=== PATIENT | male | born 1975 | race Caucasian/White ===

== ENCOUNTER 2020-08-03 08:00 | Outpatient (CLI) | payer OTHER ==
[2020-08-03 12:26] LABS: BASOPHILS # (AUTO) 0.1 10^3/uL (0.0-0.1); BASOPHILS % (AUTO) 1.2 %; EOSINOPHILS # (AUTO) 0.1 10^3/uL (0.0-0.7); EOSINOPHILS % (AUTO) 1.5 %; HCT - HEMATOCRIT 43.5 % (42.0-52.0); HGB - HEMOGLOBIN 14.3 g/dL (14.0-18.0); LYMPHOCYTES # (AUTO) 1.9 10^3/uL (1.5-3.5); LYMPHOCYTES % (AUTO) 37.3 %; MEAN CORPUSCULAR HEMOGLOBIN 32.1 pg (27.0-31.0); MEAN CORPUSCULAR HGB CONC 32.9 g/dL (32.0-36.0); MEAN CORPUSCULAR VOLUME 97.5 fL (80.0-94.0); MONOCYTES # (AUTO) 0.5 10^3/uL (0.0-1.0); MONOCYTES % (AUTO) 8.8 %; NEUTROPHILS # (AUTO) 2.7 10^3/uL (1.5-6.6); NEUTROPHILS % (AUTO) 51.2 %; PLT - PLATELET COUNT 356 10^3/uL (130-450); RED BLOOD COUNT 4.46 10^6/uL (4.70-6.10); RED CELL DISTRIBUTION WIDTH 12.1 % (12.0-15.0); WHITE BLOOD COUNT 5.2 x10^3/uL (4.8-10.8)
[2020-08-03 13:04] LABS: ALBUMIN 4.6 g/dL (3.2-5.5); ALBUMIN/GLOBULIN RATIO 1.4 (1.0-2.2); ALKALINE PHOSPHATASE 44 IU/L (42-121); ALT ALANINE AMINOTRANSFERASE 22 IU/L (10-60); AST ASPARTATE AMINOTRANSFERASE 29 IU/L (10-42); BILIRUBIN,TOTAL 1.1 mg/dL (0.2-1.0); BUN - BLOOD UREA NITROGEN 13 mg/dL (6-20); CALCIUM 9.5 mg/dL (8.5-10.3); CARBON DIOXIDE - CO2 29 mmol/L (21-32); CHLORIDE 100 mmol/L (101-111); CHOL/HDL RATIO 3.1 (<5.0); CHOLESTEROL 235 mg/dL; CREATININE 1.1 mg/dL (0.6-1.2); GFR - MDRD 72 (>89); GLUCOSE 116 mg/dL (70-100); HDL CHOLESTEROL 75 mg/dL; LDL CHOLESTEROL,CALCULATED 149 mg/dL; POTASSIUM 4.6 mmol/L (3.5-5.0); SODIUM 139 mmol/L (135-145); TOTAL PROTEIN 7.9 g/dL (6.7-8.2); TRIGLYCERIDES 56 mg/dL; VLDL CHOLESTEROL 11 mg/dL
[2020-08-03 13:25] LABS: THYROID STIMULATING HORMONE 0.81 uIU/mL (0.34-5.60)
== END 2020-08-03 23:59 | disposition home or self-care (01) ==
LOC: LAB.WCP 08:00
PROVIDERS: ATTEND Family Medicine
DX: Z00.00 Encounter for general adult medical examination without abnormal findings (principal); R03.0 Elevated blood-pressure reading, without diagnosis of hypertension; R36.1 Hematospermia; Z12.5 Encounter for screening for malignant neoplasm of prostate
CPT/HCPCS: 36415; 80053; 80061; 83721; 84153; 84443; 85025

== ENCOUNTER 2021-04-30 12:26 | Emergency (ER) | payer OTHER ==
[2021-04-30 12:36] VITALS: BP 170/89
--- NOTE | 2021-04-30 12:55 | ED Physician Documentation ---
History of Present Illness - Stated complaint Stated Complaint: R ARM PX - Chief complaint Chief Complaint: Ext Problem - History obtained from History obtained from: Patient - Additonal information Additional information: Without specific trauma he awoke with severe neck and shoulder pain last Monday morning, week ago. Since then the pain has been constant, but somewhat waxing and waning. Only a 6 right now but at times much more severe. He describes pain radiating from the shoulder and down the arm towards the ulnar side of the hand associated with numbness in that distribution as well. It is worse with movement of the shoulder, but he has some pre-existing shoulder issues and movement of the shoulder does not seem much worse than it did previously. He seen a chiropractor and a massage therapist twice with only transient relief, and went to the walk-in clinic and got a muscle relaxer which has not been helpful. Denies fevers or chills. Review of Systems Constitutional: reports: Reviewed and negative Eyes: reports: Reviewed and negative Ears: reports: Reviewed and negative Nose: reports: Reviewed and negative Throat: reports: Reviewed and negative PD PAST MEDICAL HISTORY - Present Medications Home Medications: Ambulatory Orders Medication Instructions Recorded Confirmed Gabapentin [Neurontin] 300 mg PO TID #60 cap 04/30/21 Oxycodone HCl/Acetaminophen 1 - 2 each PO Q6H PRN #25 tablet 04/30/21 [Percocet 5-325 mg Tablet] methocarbamoL [Methocarbamol] 500 mg PO BID PRN 04/30/21 04/30/21 predniSONE [Deltasone] 20 mg PO [id number] #21 tab 04/30/21 - Allergies Allergies/Adverse Reactions: Allergies Allergy/AdvReac Type Severity Reaction Status Date / Time No Known Drug Allergies Allergy Verified 04/30/21 12:36 PD ED PE NORMAL - Vitals Vital signs reviewed: Yes - General General: Alert and oriented X 3, No acute distress - Neck Neck: Supple, no meningeal sign, No bony TTP - Extremities Extremities: Other (No specific tenderness of the shoulder on the right nor the neck. He is only able to abduct to about 90 degrees but says this is pretty typical. 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 MRI is not available today but that is not an emergent issue and his pain is treated pending follow-up. Departure - Departure Disposition: Home, Self Care Clinical Impression: Cervical radiculopathy Condition: Good Record reviewed to determine appropriate education?: Yes Instructions: ED Cervical Radiculopathy Prescriptions: predniSONE [Deltasone] 20 mg PO [id number] #21 tab Gabapentin [Neurontin] 300 mg PO TID #60 cap Oxycodone HCl/Acetaminophen [Percocet 5-325 mg Tablet] 1 - 2 each PO Q6H PRN #25 tablet PRN Reason: pain Comments: As discussed, I believe that you probably have a cervical radiculopathy, also known as a pinched nerve in your neck. At some point you will probably need an MRI if this continues, but right now we are going to treat with medications especially since you are traveling in the next few days and MRI is not available today. I sent the prescriptions electronically to [facility] in [place]. Do not drink or drive while taking gabapentin or Percocet/oxycodone. Return for new or worsening symptoms. This record should go to Dr. Felix's office which may help arrange follow-up, currently the MRI runs Monday through "bankers hours" I am prescribing a short course of narcotic pain medication for you. These are potentially dangerous and addictive medications that should be used carefully. These medications may constipate you. Take an [id number] stool softener (docusate) twice daily with plenty of water while taking these medications. If you go 24 hours without a bowel movement, take [id number] miralax, per package instructions. Do not drink or drive while taking these medications. If you received narcotic or sedating medications while in the emergency department, do not drive for 24 hours. Store this medication in a safe, secure place and out of reach of children. It is a violation of federal law to give or sell this medication to another person or to use in a manner other than prescribed. The ED will not refill narcotic prescriptions, including prescriptions lost or stolen. To dispose of unwanted medications: 1. [facility] at [address] in [place] has a medication drop box. They accept prescription medications (in pill form) Monday through Monday 9:00 a.m. to 5:00 p.m. 2. The [facility] accepts prescription medications (in pill form only) for disposal year round. Call for more information. 3. Contact the [facility] for the next [facility] sponsored prescription drug collection event. , [phone], or [phone]; Note that many narcotic pain relievers also contain Tylenol/acetaminophen. Please ensure that your total dose of acetaminophen from all sources does not exceed 3 g (3000 mg) per day. Discharge Date/Time: 04/30/21 13:08
== END 2021-04-30 13:08 | disposition home or self-care (01) ==
LOC: ED 12:26
DX: M54.12 Radiculopathy, cervical region (principal)
CPT/HCPCS: 99283

== ENCOUNTER 2021-05-13 11:23 | Outpatient (CLI) | payer OTHER ==
[2021-05-13 18:23] LABS: BASOPHILS # (AUTO) 0.1 10^3/uL (0.0-0.1); BASOPHILS % (AUTO) 0.7 %; EOSINOPHILS % (AUTO) 0.5 %; HCT - HEMATOCRIT 45.7 % (42.0-52.0); HGB - HEMOGLOBIN 14.9 g/dL (14.0-18.0); LYMPHOCYTES # (AUTO) 1.9 10^3/uL (1.5-3.5); LYMPHOCYTES % (AUTO) 23.5 %; MEAN CORPUSCULAR HEMOGLOBIN 31.4 pg (27.0-31.0); MEAN CORPUSCULAR HGB CONC 32.6 g/dL (32.0-36.0); MEAN CORPUSCULAR VOLUME 96.2 fL (80.0-94.0); MEAN PLATELET VOLUME 10.4 fL (7.4-11.4); MONOCYTES # (AUTO) 0.6 10^3/uL (0.0-1.0); MONOCYTES % (AUTO) 6.8 %; NEUTROPHILS # (AUTO) 5.6 10^3/uL (1.5-6.6); NEUTROPHILS % (AUTO) 68.4 %; PLT - PLATELET COUNT 346 10^3/uL (130-450); RED BLOOD COUNT 4.75 10^6/uL (4.70-6.10); RED CELL DISTRIBUTION WIDTH 12.2 % (12.0-15.0); WHITE BLOOD COUNT 8.2 x10^3/uL (4.8-10.8)
[2021-05-13 18:52] LABS: ALBUMIN 4.6 g/dL (3.2-5.5); ALBUMIN/GLOBULIN RATIO 1.4 (1.0-2.2); ALKALINE PHOSPHATASE 47 IU/L (42-121); ALT ALANINE AMINOTRANSFERASE 30 IU/L (10-60); AST ASPARTATE AMINOTRANSFERASE 37 IU/L (10-42); BILIRUBIN,TOTAL 0.8 mg/dL (0.2-1.0); BUN - BLOOD UREA NITROGEN 14 mg/dL (6-20); CALCIUM 9.5 mg/dL (8.5-10.3); CARBON DIOXIDE - CO2 28 mmol/L (21-32); CHLORIDE 98 mmol/L (101-111); CHOL/HDL RATIO 3.5 (<5.0); CHOLESTEROL 269 mg/dL; CREATININE 1.1 mg/dL (0.6-1.2); GFR - MDRD 72 (>89); GLUCOSE 100 mg/dL (70-100); HDL CHOLESTEROL 77 mg/dL; LDL CHOLESTEROL,CALCULATED 179 mg/dL; LDL/HDL RATIO 2.3 (<3.6); POTASSIUM 4.7 mmol/L (3.5-5.0); SODIUM 137 mmol/L (135-145); TOTAL PROTEIN 7.8 g/dL (6.7-8.2); TRIGLYCERIDES 66 mg/dL; VLDL CHOLESTEROL 13 mg/dL
[2021-05-13 19:05] LABS: THYROID STIMULATING HORMONE 1.17 uIU/mL (0.34-5.60)
== END 2021-05-13 11:24 | disposition home or self-care (01) ==
LOC: LAB.N 11:23
PROVIDERS: ATTEND Family Medicine
DX: E78.00 Pure hypercholesterolemia, unspecified (principal); R03.0 Elevated blood-pressure reading, without diagnosis of hypertension; G47.09 Other insomnia
CPT/HCPCS: 36415; 80053; 80061; 83721; 84443; 85025

== ENCOUNTER 2021-06-07 12:50 | Outpatient (CLI) | payer OTHER ==
--- NOTE | 2021-06-07 14:12 | MRI Report ---
PROCEDURE: Cervical Spine W/O INDICATIONS: CERVICAL RADICULOPATHY TECHNIQUE: Noncontrast sagittal T1 spin echo and T2 fast spin echo, sagittal STIR, foraminal oblique sagittal T2 fast spin echo, and axial gradient echo and T2 fast spin echo through the cervical spine. COMPARISON: None. FINDINGS: Image quality: Motion artifact is noted. Alignment and Curvature: There is normal bony alignment. Bone Marrow: Marrow demonstrates normal overall signal. Spinal Cord: Visualized spinal cord has normal size and signal. No cerebellar tonsillar herniation. Paraspinous Soft Tissues: No paravertebral masses. Prevertebral soft tissues are normal in thicknes s. C2-C3: Normal in appearance. C3-C4: The disc height and disc signal are well preserved. Mild disc osteophyte complex is seen. Mild facet hypertrophy is seen. Moderate bilateral neural foraminal narrowing is seen. Minimal central canal narrowing is seen. C4-C5: The disc height is well-preserved. There is loss of disc signal seen. Mild to moderate disc o steophyte complex is seen, with a mild central disc osteophyte protrusion. Moderate facet hypertroph y is seen. Minimal to mild bilateral neuroforaminal narrowing is seen. Mild central canal narrowing is seen. Minimal mass effect can be seen upon the ventral spinal cord. C5-C6: Mild loss of disc height and disc signal are seen. Moderate disc osteophyte complex is seen, which is eccentric to the right. There is a mild central disc osteophyte protrusion seen. Moderate f acet hypertrophy is seen. There is moderate to severe right-sided and at least moderate left-sided n euroforaminal narrowing seen. Moderate central canal narrowing is seen. Associated mass effect is seen upon the ventral spinal cord. C6-C7: The disc height and disc signal are relatively well-preserved. Mild disc osteophyte complex i s seen, with a mild central disc osteophyte protrusion. Mild to moderate facet hypertrophy can be see n. There is moderate right-sided and minimal left-sided neuroforaminal narrowing. Mild central canal narrowing is seen. C7-T1: No significant abnormality is seen. IMPRESSION: Cervical spine degenerative changes are seen, which are worst at the C5-C6 level. Reviewed by: Jacinto Em MD on 06/07/2021 1:10 PM MELCHOR Approved by: Jacinto Em MD on 06/07/2021 1:10 PM AKLYUBOV Station ID: [id number]
== END 2021-06-07 12:51 | disposition home or self-care (01) ==
LOC: DI 12:50
PROVIDERS: ATTEND Family Medicine
DX: M47.812 Spondylosis without myelopathy or radiculopathy, cervical region (principal)

== ENCOUNTER 2021-07-11 09:50 | Emergency (ER) | payer OTHER ==
[2021-07-11 10:03] VITALS: BP 165/109
--- NOTE | 2021-07-11 10:23 | ED Physician Documentation ---
PD HPI UPPER EXT INJURY - Stated complaint Stated Complaint: NOT ABLE TO MOVE RIGHT ARM - Chief complaint Chief Complaint: Ext Problem - History obtained from History obtained from: Patient - Additonal information Additional information: 45-year-old gentleman diagnosed with cervical radiculopathy at the beginning of April. He has been in physical therapy and still has persistent pain mostly in the anterior shoulder and weakness in abduction of the right shoulder. The pain is not as bad as when I saw him in early April. In the interim he has had a MRI of the cervical spine showing multilevel degenerative changes, and likely causative there is "moderate to severe right-sided neuroforaminal narrowing at C5-C6." He has seen a neurosurgeon in [place] in the interim and is being scheduled likely for anterior approach disc replacement. Here today not with pain too much, that is much better than it was in the beginning of April, but with questions about his range of motion of his shoulder and popping in his shoulder when he moves it. Review of Systems Constitutional: reports: Reviewed and negative Eyes: reports: Reviewed and negative Ears: reports: Reviewed and negative Nose: reports: Reviewed and negative Throat: reports: Reviewed and negative Cardiac: reports: Reviewed and negative Respiratory: reports: Reviewed and negative PD PAST MEDICAL HISTORY - Present Medications Home Medications: Ambulatory Orders Medication Instructions Recorded Confirmed Omeprazole 40 mg PO DAILY #30 cap 07/11/21 predniSONE [Deltasone] 20 mg PO [id number] #21 tab 07/11/21 - Allergies Allergies/Adverse Reactions: Allergies Allergy/AdvReac Type Severity Reaction Status Date / Time No Known Drug Allergies Allergy Verified 07/11/21 10:03 PD ED PE NORMAL - Vitals Vital signs reviewed: Yes - General General: Alert and oriented X 3, No acute distress - Neck Neck: Supple, no meningeal sign, No bony TTP - Extremities Extremities: Other (Right shoulder is nontender as is the neck. He can only abduct to about 90 degrees due to weakness. He has no pain with passive range of motion of the shoulder and negative supraspinatus testing.) - Neuro Neuro: Alert and oriented X 3, Normal speech Results - Vitals Vitals: Vital Signs - 24 hr 07/11/21 09:58 Temperature 36.9 C Heart Rate 75 Respiratory 16 Rate Blood Pressure 165/109 H O2 Saturation 100 Oxygen O2 Source Room air - Rads (name of study) 3v R sholder XR Radiology: EMP read contemporaneously PD MEDICAL DECISION MAKING - ED course ED course: 45-year-old gentleman with shoulder pain which I suspect is referred from his known cervical radiculopathy. This is based on exam, really does not have pain with range of motion but does have severely limited range of motion due to weakness. Negative supraspinatus testing. X-ray does demonstrate some calcific tendinitis and we discussed this. After discussion and taking into account his symptoms he plans to follow-up with the neurosurgeon thinking that the bulk of his issues are related to his right-sided C5/C6 radiculopathy. Departure - Departure Disposition: 01 Home, Self Care Clinical Impression: Cervical radiculopathy, Calcific tendinitis of right shoulder Condition: Good Record reviewed to determine appropriate education?: Yes Instructions: ED Cervical Radiculopathy Prescriptions: predniSONE [Deltasone] 20 mg PO [id number] #21 tab Omeprazole 40 mg PO DAILY #30 cap Comments: I sent your prescriptions electronically to [facility] in [place]. I am prescribing another course of steroids as well as some stomach acid medicine since the steroids and the anti-inflammatories you are already on tend to increase stomach acid and be a bit of a problem in that sense. I encourage you to follow-up with the neurosurgeon as planned and return for new or worsening symptoms. Discharge Date/Time: 07/11/21 10:43
--- NOTE | 2021-07-11 10:38 | XRAY Report ---
PROCEDURE: Shoulder 3 View RT INDICATIONS: shoulder pain TECHNIQUE: 3 views of the shoulder were acquired. COMPARISON: None. FINDINGS: Bones: No acute fractures or dislocations. A 3 mm bone fragment can be seen superior to the glenoid, with a remote appearance. No suspicious bony lesions. Visualized ribs appear intact. Soft tissues: Calcific tendinopathy can be seen. The visualized lung demonstrates a normal appearanc e. IMPRESSION: Calcific tendinopathy is seen, without an acute abnormality identified. 3 mm remote appearing bone fragment seen superior to the glenoid. If it would be helpful for clinical management decision making, please consider a dedicated, schedule d shoulder MRI for further evaluation (assuming that there is no contraindication). Reviewed by: Jacinto Em MD on 07/11/2021 9:37 AM MELCHOR Approved by: Jacinto Em MD on 07/11/2021 9:37 AM MELCHOR Station ID: [id number]
== END 2021-07-11 10:43 | disposition home or self-care (01) ==
LOC: ED 09:50
DX: M54.12 Radiculopathy, cervical region (principal); M75.31 Calcific tendinitis of right shoulder
CPT/HCPCS: 99283